=== PATIENT | female | born 1990 | race African-American/Black ===

== ENCOUNTER 2018-06-13 22:58 | Emergency (ER) | payer OTHER ==
[~2018-06-13] VITALS: Ht 165.1 cm; Wt 70.3 kg
[2018-06-13] MEDS ORDERED: NOHOMEMEDICATIONS (23:03)
[2018-06-14] MEDS ORDERED: FLONASE 0.05%50 MCG NASAL (00:06)
[2018-06-14] MEDS ORDERED: MUCINEX DM ER1 EACH PO (00:06)
[2018-06-14 00:43] VITALS: BP 110/72
== END 2018-06-14 00:44 | disposition home or self-care (01) ==
LOC: ER 22:58
DX: J06.9 Acute upper respiratory infection, unspecified (principal); J45.909 Unspecified asthma, uncomplicated; Z88.8 Allergy status to other drugs, medicaments and biological substances